=== PATIENT | male | born 1995 | race Caucasian/White ===

== ENCOUNTER 2017-01-31 13:41 | Emergency (ER) | payer SELFPAY ==
[~2017-01-31] VITALS: Ht 162.6 cm; Wt 73.9 kg
[2017-01-31 13:52] VITALS: BP 133/90
--- NOTE | 2017-01-31 14:12 | NUR ---
PT TAKEN TO OVERFLOW.
--- NOTE | 2017-01-31 14:30 | NUR ---
Patient being evaluated by BLAYNE Mahmood in overflow.
[2017-01-31 15:54] VITALS: BP 133/90
== END 2017-01-31 15:54 | disposition home or self-care (01) ==
LOC: MED 13:41
DX: R07.9 Chest pain, unspecified (principal)
CPT/HCPCS: 36415; 71020; 84484; 99285

== ENCOUNTER 2017-04-29 04:52 | Emergency (ER) | payer BC ==
[~2017-04-29] VITALS: Ht 162.6 cm; Wt 73.9 kg
[2017-04-29 04:59] VITALS: BP 136/103
--- NOTE | 2017-04-29 05:04 | NUR ---
PATIENT TO ER BED 7
--- NOTE | 2017-04-29 05:04 | NUR ---
Patient ambulated to bed 7. RN evaluating patient at bedside.
[2017-04-29 05:05] VITALS: BP 136/103
--- NOTE | 2017-04-29 05:05 | NUR ---
PATIENT PRESENTS TO ED WITH C/O TOOTHACHE . PT DENIES N/V/D; SKIN IS PINK/WARM/DRY; AAOX4 WITH EVEN AND STEADY GAIT; LUNGS CLEAR BL; HR EVEN AND REGULAR; PT DENIES ANY FEVER, CP, SOB, OR COUGH AT THIS TIME; PATIENT STATES PAIN OF 10/10 AT THIS TIME; VSS; PATIENT POSITIONED FOR COMFORT; HOB ELEVATED; BEDRAILS UP X2; BED DOWN. ER MD MADE AWARE OF PT STATUS.
[2017-04-29] MEDS ORDERED: AMOXICILLIN 500 MG CAP PO ONE (05:15)
[2017-04-29] MEDS ORDERED: HYDROcodone/APAP 5/325 MG 1 TAB TAB PO ONE (05:15)
--- NOTE | 2017-04-29 05:31 | NUR ---
Patient discharged with v/s stable. Written and verbal after care instructions given and explained. Patient alert, oriented and verbalized understanding of instructions. Ambulatory with steady gait. All questions addressed prior to discharge. ID band removed. Patient advised to follow up with PMD. Rx of NORCO AND AMOXIL given. Patient educated on indication of medication including possible reaction and side effects. Opportunity to ask questions provided and answered.
== END 2017-04-29 05:30 | disposition home or self-care (01) ==
LOC: MED 04:52
DX: K04.7 Periapical abscess without sinus (principal); R03.0 Elevated blood-pressure reading, without diagnosis of hypertension
CPT/HCPCS: 99283